=== PATIENT | male | born 1960 | race Caucasian/White ===

== ENCOUNTER 2017-11-24 10:40 | Emergency (ER) | payer SELFPAY ==
[~2017-11-24] VITALS: Ht 170.2 cm; Wt 70.3 kg
[2017-11-24 10:46] VITALS: BP 134/77
[2017-11-24] MEDS ORDERED: LIDOCAINE 1% INJ 50 ML MDV IJ ONE (10:55)
[2017-11-24] MEDS ORDERED: TDAP [DIPH/PERTUSSIS/TET] 0.5 ML VIAL IM ONE ×2 (11:00→11:03)
[2017-11-24] MEDS ORDERED: BACI/NEOM/POLY B OINT PKT 1 UDPKT PACKET TP ONE (11:00)
[2017-11-24] MEDS ORDERED: LIDOCAINE 2%-EPI 1:100,000 30 ML VIAL TP ONE (11:00)
[2017-11-24] MEDS ORDERED: BACI/NEOM/POLY B OINT PKT 1 UDPKT PACKET ONE (11:03)
--- NOTE | 2017-11-24 12:12 | NUR ---
LACERATION IRRIGATED BY RAOUL WERNER EMT AND REPAIRED BY DR MEDRANO WOUND DRESSED AND ACI GIVEN
--- NOTE | 2017-11-24 12:12 | NUR ---
PT. VERBALIZED UNDERSTANDING OF AFTERCARE INSTRUCTIONS.Patient discharged to home in stable condition. Written and verbal after care instructions given. Patient verbalizes understanding of instruction.
== END 2017-11-24 12:15 | disposition home or self-care (01) ==
LOC: ER 10:42
DX: S61.412A Laceration without foreign body of left hand, initial encounter (principal); W45.8XXA Other foreign body or object entering through skin, initial encounter; Y93.89 Activity, other specified; Y92.89 Other specified places as the place of occurrence of the external cause; Y99.8 Other external cause status
CPT/HCPCS: 90715; A4606; A6402; J3490; Z7610